=== PATIENT | female | born 1995 | race Two or more races ===

== ENCOUNTER 2023-02-20 10:23 | Outpatient (CLI) | payer OTHER | END 2023-02-20 11:13 | disposition home or self-care (01) | LOC: PRENATAL 10:23 | PROVIDERS: ATTEND Obstetrics & Gynecology Maternal & Fetal Medicine | DX: O36.80X0 Pregnancy with inconclusive fetal viability, not applicable or unspecified (principal); Z36.82 Encounter for antenatal screening for nuchal translucency; O99.280 Endocrine, nutritional and metabolic diseases complicating pregnancy, unspecified trimester; Z36.9 Encounter for antenatal screening, unspecified; Z3A.12 12 weeks gestation of pregnancy ==

== ENCOUNTER 2023-04-14 12:39 | Outpatient (CLI) | payer OTHER | END 2023-04-14 12:41 | disposition home or self-care (01) | LOC: PRENATAL 12:39 | PROVIDERS: ATTEND Obstetrics & Gynecology Maternal & Fetal Medicine | DX: O35.9XX0 Maternal care for (suspected) fetal abnormality and damage, unspecified, not applicable or unspecified (principal); O44.00 Complete placenta previa NOS or without hemorrhage, unspecified trimester; Z3A.20 20 weeks gestation of pregnancy ==

== ENCOUNTER 2023-06-09 11:31 | Outpatient (CLI) | payer OTHER | END 2023-06-09 11:32 | disposition home or self-care (01) | LOC: PRENATAL 11:31 | PROVIDERS: ATTEND Obstetrics & Gynecology Maternal & Fetal Medicine | DX: O26.849 Uterine size-date discrepancy, unspecified trimester (principal); O44.00 Complete placenta previa NOS or without hemorrhage, unspecified trimester; O99.280 Endocrine, nutritional and metabolic diseases complicating pregnancy, unspecified trimester; Z3A.28 28 weeks gestation of pregnancy ==